=== PATIENT | male | born 1990 | race American Indian/Alaskan Native ===

== ENCOUNTER 2017-06-24 23:48 | Emergency (ER) | payer SELFPAY ==
[2017-06-25] MEDS ORDERED: TYLENOL ONE (01:56)
[2017-06-25] MEDS ORDERED: TYLENOL PO ONE ×2 (02:14→05:02)
[2017-06-25 03:01] LABS: Basophils % (Auto) 0.2 % (0.0-1.8); Eosinophils % (Auto) 0.2 % (0.0-4.3); Hematocrit 49.5 % (35.5-45.6); Hemoglobin 17.2 gm/dl (11.8-15.2); Lymphocytes % (Auto) 11.6 % (13.4-35.0); Mean Corpuscular HGB Conc 35 % (32-34); Mean Corpuscular Hemoglobin 30 pg (28-32); Mean Corpuscular Volume 87 fl (84-94); Monocytes # (Auto) 1.5 K/mm3 (0.0-0.8); Monocytes % (Auto) 8.5 % (0.0-7.3); Platelet Count 215 K/mm3 (140-440); Red Blood Count 5.69 M/mm3 (3.65-5.03); Red Cell Distribution Width 13.3 % (13.2-15.2)
[2017-06-25 03:19] LABS: Alanine Aminotransferase 18 units/L (7-56); Albumin 4.5 g/dL (3.9-5); BUN/Creatinine Ratio 14; Blood Urea Nitrogen 11 mg/dL (9-20); Calcium 9.1 mg/dL (8.4-10.2); Hemolysis Index 12
[2017-06-25] MEDS ORDERED: ZOFRAN ODT PO ONE (05:01)
[2017-06-25] MEDS ORDERED: MOTRIN PO ONE (05:02)
--- NOTE | 2017-06-25 06:31 | Emergency Department Report ---
ED N/V/D HPI - General Chief complaint: Abdominal Pain Stated complaint: ABD PAIN Time Seen by Provider: 06/25/17 06:08 Source: patient Mode of arrival: Ambulatory Limitations: No Limitations - History of Present Illness Initial comments: Presents with nausea, vomiting, and diarrhea for the past 12 hours. Patient denies sick contacts, but has eaten fast food. Afebrile. No recent antibiotics , traveling, hospitalizations. He is able to keep down liquids, but not solid food. Hasn't tried anything at home for this. Location: diffuse Radiation: none Severity: moderate Quality: cramping Consistency: constant Worsens with: eating Associated Symptoms: loss of appetite, nausea/vomiting - Related Data Previous Rx's Medication Instructions Recorded Last Taken Type Ondansetron [Zofran TAB] 4 mg PO Q8HR PRN #10 tablet 06/25/17 Unknown Rx Allergies Allergy/AdvReac Type Severity Reaction Status Date / Time No Known Allergies Allergy Unverified 06/25/17 01:14 ED Review of Systems ROS: Stated complaint: ABD PAIN Other details as noted in HPI Comment: All other systems reviewed and negative ED Past Medical Hx - Past Medical History Previous Medical History?: No - Surgical History Past Surgical History?: No - Social History Smoking Status: Current Every Day Smoker Substance Use Type: Alcohol - Medications Home Medications: Home Medications Medication Instructions Recorded Confirmed Last Taken Type Ondansetron [Zofran TAB] 4 mg PO Q8HR PRN #10 tablet 06/25/17 Unknown Rx ED Physical Exam - General Limitations: No Limitations General appearance: alert, in no apparent distress - Head Head exam: Present: atraumatic, normocephalic - Eye Eye exam: Present: normal appearance - ENT ENT exam: Present: mucous membranes moist - Neck Neck exam: Present: normal inspection - Respiratory Respiratory exam: Present: normal lung sounds bilaterally. Absent: respiratory distress - Cardiovascular Cardiovascular Exam: Present: regular rate, normal rhythm. Absent: systolic murmur, diastolic murmur, rubs, gallop - GI/Abdominal GI/Abdominal exam: Present: soft, tenderness (diffuse) - Rectal Rectal exam: Present: deferred - Extremities Exam Extremities exam: Present: normal inspection - Back Exam Back exam: Present: normal inspection - Neurological Exam Neurological exam: Present: alert, oriented X3 - Psychiatric Psychiatric exam: Present: normal affect, normal mood - Skin Skin exam: Present: warm, dry, intact, normal color. Absent: rash ED Course Vital Signs 06/25/17 06/25/17 02:30 04:49 Temperature 99.3 F 99.4 F Pulse Rate 83 76 Respiratory 18 16 Rate Blood Pressure 126/77 Blood Pressure 128/80 [Left] O2 Sat by Pulse 99 99 Oximetry ED Medical Decision Making - Lab Data Result diagrams: 06/25/17 02:38 06/25/17 02:38 - Medical Decision Making 36-year-old male with no significant past medical history presents with vomiting and diarrhea for the past 12 hours. Patient likely has gastroenteritis. He was given Zofran/Tylenol/Motrin. On reevaluation, he felt symptomatically improved. He passed his by mouth challenge in the ER. I explained the clear liquid diet to the patient. He'll be discharged with Zofran to go home with. Lab work shows elevated hemoglobin. Likely this is related to the patient's vomiting/diarrhea, which is causing be hemoconcentrated. Low suspicion for appendicitis. Critical care attestation.: If time is entered above; I have spent that time in minutes in the direct care of this critically ill patient, excluding procedure time. ED Disposition Clinical Impression: Gastroenteritis Disposition: DC-01 TO HOME OR SELFCARE Is pt being admited?: No Condition: Stable Instructions: Gastroenteritis (ED), Acute Nausea and Vomiting (ED) Prescriptions: Ondansetron [Zofran TAB] 4 mg PO Q8HR PRN #10 tablet PRN Reason: Vomiting Referrals: TORY CAMPA MD [Primary Care Provider] - 3-5 Days
[2017-06-25 06:40] VITALS: BP 111/59
== END 2017-06-25 07:18 | disposition home or self-care (01) ==
LOC: ED 23:48
DX: K52.9 Noninfective gastroenteritis and colitis, unspecified (principal); F17.200 Nicotine dependence, unspecified, uncomplicated
CPT/HCPCS: 36415; 80053; 85025; 99283; Q0162

== ENCOUNTER 2019-10-13 11:49 | Emergency (ER) | payer SELFPAY ==
[2019-10-13 11:54] VITALS: BP 119/66
[2019-10-13] MEDS ORDERED: FLUORESCEIN 1 MG STRIP OP ONE (12:41)
[2019-10-13] MEDS ORDERED: TETRACAINE 0.5% OPHTH SOLN 4ML OU ONE (12:41)
--- NOTE | 2019-10-13 12:55 | Emergency Department Report ---
ED Eye Problem HPI - General Chief complaint: Eye Problems Stated complaint: RT EYE RED Time Seen by Provider: 10/13/19 12:39 Source: patient Mode of arrival: Ambulatory Limitations: No Limitations - History of Present Illness Initial comments: Patient is a 29-year-old male who presents emergency room with complaints of right eye irritation that began a few days ago. 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 He states that the air blew dust into his eye. He states that he wash the eye out once he got home. He states that the eye has been watering and he notices mucus when he wakes up in the morning. He states he has had some crusting present of the eye. He denies any contact lens use. He denies anyone else with the same thing. He denies any vision changes. No past medical history. No allergies to medications. - Related Data Previous Rx's Medication Instructions Recorded Last Taken Type Ondansetron [Zofran TAB] 4 mg PO Q8HR PRN #10 tablet 06/25/17 Unknown Rx Erythromycin [Erythromycin Ophth 1 applicatio OD QID 10 Days #1 tube 10/13/19 Unknown Rx Oint] Allergies Allergy/AdvReac Type Severity Reaction Status Date / Time No Known Allergies Allergy Unverified 06/25/17 01:14 ED Review of Systems ROS: Stated complaint: RT EYE RED Other details as noted in HPI Comment: All other systems reviewed and negative ED Past Medical Hx - Past Medical History Previous Medical History?: No - Surgical History Past Surgical History?: No - Social History Smoking Status: Never Smoker Substance Use Type: None - Medications Home Medications: Home Medications Medication Instructions Recorded Confirmed Last Taken Type Ondansetron [Zofran TAB] 4 mg PO Q8HR PRN #10 tablet 06/25/17 Unknown Rx Erythromycin [Erythromycin Ophth 1 applicatio OD QID 10 Days #1 tube 10/13/19 Unknown Rx Oint] ED Physical Exam - General Limitations: No Limitations General appearance: alert, in no apparent distress - Head Head exam: Present: atraumatic, normocephalic - Eye Eye exam: Present: PERRL, EOMI, conjunctival injection (right), other (reynolds lamp and fluoroscein dye use: very small 2 mm area of uptake present to the pupil, no signs of foreign body, no signs of ulceration). Absent: scleral icterus, nystagmus, periorbital swelling, periorbital tenderness - ENT ENT exam: Present: mucous membranes moist - Neurological Exam Neurological exam: Present: alert, oriented X3 - Psychiatric Psychiatric exam: Present: normal affect, normal mood - Skin Skin exam: Present: warm, dry, intact ED Course Vital Signs 10/13/19 11:52 Temperature 97.7 F Pulse Rate 57 L Respiratory 20 Rate Blood Pressure 119/66 O2 Sat by Pulse 100 Oximetry ED Medical Decision Making - Medical Decision Making Patient is a 29-year-old male who presents emergency room with complaints of right eye irritation that began a few days ago. 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 He states that the air blew dust into his eye. He states that he wash the eye out once he got home. He states that the eye has been watering and he notices mucus when he wakes up in the morning. He states he has had some crusting present of the eye. He denies any contact lens use. He denies anyone else with the same thing. He denies any vision changes. No past medical history. No allergies to medications. VSS. on exam: reynolds lamp and fluoroscein dye use: very small 2 mm area of uptake present to the pupil, no signs of foreign body, no signs of ulceration, left conjunctival injection. examination consistent with small corneal abrasion. pt given prescription for erythromycin ophthalmic ointment. Please use medication as prescribed. Please wash your hands before placing the medication and after. Avoid rubbing the eyes. 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 Return to emergency room for any new or worsening symptoms. - Differential Diagnosis corneal abrasion, corneal ulceration, foreign body, conjunctivitis Critical care attestation.: If time is entered above; I have spent that time in minutes in the direct care of this critically ill patient, excluding procedure time. ED Disposition Clinical Impression: Corneal abrasion Qualifiers: Encounter type: initial encounter Laterality: right Qualified Code(s): S05.01XA - Injury of conjunctiva and corneal abrasion without foreign body, right eye, initial encounter Disposition: - TO HOME OR SELFCARE Is pt being admited?: No Does the pt Need Aspirin: No Condition: Stable Instructions: Corneal Abrasion (ED) Additional Instructions: Please use medication as prescribed. Please wash your hands before placing the medication and after. Avoid rubbing the eyes. 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 Return to emergency room for any new or worsening symptoms. Prescriptions: Erythromycin [Erythromycin Ophth Oint] 1 applicatio OD QID 10 Days #1 tube Referrals: [facility] [Provider Group] - 3-5 Days SUMAN BELL MD [Staff Physician] - 3-5 Days Time of Disposition: 12:54 Print Language: WELSH
== END 2019-10-13 14:02 | disposition home or self-care (01) ==
LOC: ED 11:49
DX: S05.01XA Injury of conjunctiva and corneal abrasion without foreign body, right eye, initial encounter (principal); X58.XXXA Exposure to other specified factors, initial encounter; Y93.89 Activity, other specified; Y92.89 Other specified places as the place of occurrence of the external cause; Y99.8 Other external cause status
CPT/HCPCS: 99282